=== PATIENT | female | born 1980 | race Caucasian/White ===

== ENCOUNTER 2017-09-24 19:38 | Inpatient (IN) | payer BC ==
[~2017-09-24 19:38] MED LIST: Dinoprostone* 10 MG VAG.SUPP VAGINAL ONE
--- NOTE | 2017-09-24 22:29 | HP ---
General Information - General Information Maternal Age: 37 Grav: 2 Para: 0 SAB: 0 IEA: 1 Estimated Due Date: 09/15/17 Determined By: LMP Gestational Age in Weeks and Days: 41 Weeks and 2 Days Maternal Blood Type and Rh: A Positive - Results this Serology/RPR Result: Non-Reactive Rubella Result: Immune HBsAg Result: Negative HIV Result: Negative GBS Culture Result: Negative Past Medical History Delivery History: See Records Pertinent Past Medical History: Non-Contributory Pertinent Past Surgical History: None Pertinent Family History: Non-Contributory - Antepartal Records Antepartal Records: Reviewed, Uncomplicated Review of Systems Constitutional: Comfortable CV Complaint: No Respiratory: Shortness of Breath: No Gastrointestinal: No Nausea/Vomiting, Normal Bowel Movement Genitourinary: No Dysuria, No Bleeding, No Leaking Fluid Musculoskeletal: No Complaint Neurological: No Headache, No Visual Changes Movement: Normal Exam Allergies/Adverse Reactions: Allergies No Known Allergies Allergy (Verified 09/24/17 20:35) Vital Signs 09/24/17 19:50 Temperature 97.1 F Pulse Rate 76 Respiratory 16 Rate Blood Pressure 121/78 (mmHg) O2 Sat by Pulse 99 Oximetry - Measurements Height: 5 ft 5 in Weight: 91.626 kg Body Mass Index (BMI): 33.6 Pre- Weight: 72.575 kg - Exam Abdomen: No Upper Quadrant Pain Breast: Breast Exam Deferred CVA: No CVA Tenderness Extremities: Edema - bilateral pedal edema Heart: Normal Rhythm/Heart Sounds HEENT: No Significant Findings Lungs: Clear Bilaterally Rectal: Rectal Exam Deferred Reflexes: DTR 2+ Thyroid: No Thyromegaly Targeted Exam Findings See L&D Outpatient Visit Provider Note for Findings: N/A Estimated Weight: 7#6oz Cervical Exam: Fingertip Effacement: 50% Station: -3 Presenting Part: Vertex Membrane Status: Intact Bleeding/Discharge: None EFM Findings - External Monitor Findings Baseline Heart Rate: 105 External Monitor Findings: Accelerations Present, No Pattern of Variable or Late Decelerations, Variability Moderate, Baseline Stable - baseline fluctuating between 105 and 110 Contractions: Irregular, Mild, < 45 Seconds Assessment/Plan - Reason for Visit Reason for Visit: Pt seen in office today for post-dates surveillance. NST showed baseline 105 and was only reactive after vibroacoustic stimulation. After discussion of options with Luis A Ledezma CNM pt elected to begin cervical ripening tonight. - Obstetrical Risk Factors Obstetrical Risk Factors: Post-Dates - Plan Plan: Cervical Ripening - Date/Time of Admission Date of Admission: 09/24/17 Time of Admission: 20:50
[2017-09-25] MEDS ORDERED: Dinoprostone* 10 MG VAG.SUPP VAGINAL ONE (09:00)
[2017-09-25] MEDS ORDERED: Misoprostol TAB* 100 MCG ONE ×2 (17:07→20:53)
[2017-09-25] MEDS ORDERED: Promethazine INJ(RESTRICTED)* 25 MG/ML 1 ML VIAL IV PRN (22:05)
[2017-09-25] MEDS ORDERED: Nalbuphine* 20 MG/ML 1 ML VIAL IV PRN (22:05)
[2017-09-26] MEDS ORDERED: Misoprostol TAB* 100 MCG ONE (01:30)
[2017-09-26 04:54] LABS: Hematocrit 38 % (35-47); Hemoglobin 12.9 g/dl (12.0-16.0); Mean Corpuscular HGB Conc 34 g/dl (31-36); Mean Corpuscular Hemoglobin 31 pg (27-31); Mean Corpuscular Volume 91 fL (80-97); Mean Platelet Volume 8.1 um3 (7.4-10.4); Platelet Count 239 10^3/ul (150-450); Red Blood Count 4.15 10^6/ul (4.0-5.4); Red Cell Distribution Width 16 % (10.5-15); White Blood Count 8.6 10^3/ul (3.5-10.8)
[2017-09-26] MEDS ORDERED: Ondansetron INJ* 2 MG/ML VIAL IV PRN (09:19)
[2017-09-26] MEDS ORDERED: Oxytocin in LR* 20 UNITS/1,000 ML BAG IVPB ONE (13:04)
[2017-09-26] MEDS ORDERED: fentaNYL* 50 MCG/ML 2 ML VIAL (100 MCG VIAL) ONE (16:05)
[2017-09-26] MEDS ORDERED: EPHEDrine (Pressors)* 50 MG/ML VIAL IV PUSH PRN ×2 (17:21)
[2017-09-26] MEDS ORDERED: Famotidine TAB* 20 MG PO PRN (17:21)
[2017-09-26] MEDS ORDERED: Phenylephrine IV* 40 MCG/ML 10 ML SYRINGE IV PUSH PRN ×2 (17:21)
[2017-09-26] MEDS ORDERED: Sodium Citrate/Citric Acid* 15 ML UDC PO PRN (17:21)
[2017-09-26] MEDS ORDERED: Oxytocin in LR* 20 UNITS/1,000 ML BAG IVPB SCH (18:00)
[2017-09-26] MEDS ORDERED: OBEPIDURAL* 250 ML EPIDURAL SCH (18:00)
[2017-09-26] MEDS ORDERED: ceFOXitin(*) 2 GM in NS 0.9% 100 ML* 100 ML IVPB ONE (22:13)
[2017-09-26] MEDS ORDERED: Morphine PF AMP (0.5MG/ML)* 5 MG/10 ML AMP ONE (22:40)
[2017-09-26] MEDS ORDERED: Bupivacaine-MPF SPINAL* 7.5 MG/2 ML AMP ONE (22:41)
[2017-09-26] MEDS ORDERED: Witch Hazel PAD* JAR TOPICAL PRN (22:43)
[2017-09-26] MEDS ORDERED: Glycerin ADULT SUPP PR PRN (22:43)
[2017-09-26] MEDS ORDERED: Phenylephrine IV* 40 MCG/ML 10 ML SYRINGE ONE ×2 (23:08)
[2017-09-26] MEDS ORDERED: OXYTOCIN* 10 UNITS/ML 1 ML VIAL ONE (23:23)
[2017-09-26] MEDS ORDERED: Ondansetron INJ* 2 MG/ML VIAL ONE (23:31)
[2017-09-27] MEDS ORDERED: fentaNYL* 50 MCG/ML 2 ML VIAL (100 MCG VIAL) IV PRN (00:20)
[2017-09-27] MEDS ORDERED: Acetaminophen IV 1GM/100ML * 1,000 MG/100 ML VIAL IVPB ONE (00:20)
[2017-09-27] MEDS ORDERED: Naloxone* 0.4 MG/ML 1 ML VIAL IV PRN ×2 (00:20→00:23)
[2017-09-27] MEDS ORDERED: oxyCODONE TAB* 5 MG TAB PO PRN ×2 (00:20→00:23)
[2017-09-27] MEDS ORDERED: PROCHLORPERAZINE INJ 5 MG/ML 2 ML VIAL IV PRN ×2 (00:20→00:23)
[2017-09-27] MEDS ORDERED: Ketorolac INJ* 30 MG/ML 1 ML VIAL IV ONE (00:21)
[2017-09-27] MEDS ORDERED: Nalbuphine* 20 MG/ML 1 ML VIAL IV PRN (00:23)
[2017-09-27] MEDS ORDERED: Ondansetron INJ* 2 MG/ML VIAL IV PRN (00:23)
[2017-09-27] MEDS ORDERED: Scopolamine 1.5 mg* PATCH TRANSDERM PRN (00:23)
[2017-09-27 06:57] LABS: Hematocrit 31 % (35-47); Hemoglobin 10.6 g/dl (12.0-16.0); Mean Corpuscular HGB Conc 35 g/dl (31-36); Mean Corpuscular Hemoglobin 31 pg (27-31); Mean Corpuscular Volume 90 fL (80-97); Mean Platelet Volume 7.7 um3 (7.4-10.4); Platelet Count 233 10^3/ul (150-450); Red Blood Count 3.42 10^6/ul (4.0-5.4); Red Cell Distribution Width 16 % (10.5-15); White Blood Count 16.1 10^3/ul (3.5-10.8)
[2017-09-27 08:20] LABS: ABS Basophils 0 10^3/ul (0-0.2); ABS Eosinophils 0 10^3/ul (0-0.6); ABS Lymphocytes 1.2 10^3/ul (1.0-4.8); ABS Neutrophils 13.8 10^3/ul (1.5-7.7); ABS Nucleated RBC 0 10^3/ul; Eosinophil % 0 % (0-6); Lymphocyte % 7.2 % (25-47); Nucleated Red Blood Cells % 0.1
[2017-09-27] MEDS ORDERED: Ferrous Gluconate TAB* 324 MG TAB PO SCH (09:00)
[2017-09-27] MEDS: Ketorolac INJ* 30 MG/ML 1 ML VIAL IV SCH ×3 (09:23→21:23)
[2017-09-27] MEDS: Docusate CAP* 100 MG PO SCH ×4 (09:24→21:23)
[2017-09-27] MEDS: Simethicone TAB* 80 MG TAB.CHEW PO SCH ×4 (09:24→21:23)
[2017-09-27] MEDS: Acetaminophen TAB* 325 MG PO SCH ×2 (09:25→17:21)
[2017-09-28] MEDS ORDERED: Ibuprofen TAB* 600 MG PO SCH (01:00)
[2017-09-28] MEDS: Acetaminophen TAB* 325 MG PO SCH (01:34)
[2017-09-28] MEDS: oxyCODONE/Acetamin 5/325 MG* TAB PO PRN ×5 (07:40→20:25)
--- NOTE | 2017-09-28 08:38 | OP ---
DATE OF OPERATION: 09/26/17 - ROOM #118 DATE OF : 80 SURGEON: Marly Casas MD DISTRIBUTOR OF DIRECTORIES: Dr. Ortega and SKYLAR Rodriguez. ANESTHESIOLOGIST: Dr. Palmer. ANESTHESIA: Spinal. PRE-OP DIAGNOSIS: A 41 plus week gestation and arrest of descent. POST-OP DIAGNOSIS: A 41 plus week gestation and arrest of descent. OPERATIVE PROCEDURE: Primary low transverse section. ESTIMATED BLOOD LOSS: 800 cc. URINE OUTPUT: 1000 cc. IV FLUIDS: 2200 cc lactated Ringer's. MATERIALS TO LAB: Cord blood. INDICATIONS: This patient is a 37-year-old 2, para 0, who was admitted to the labor trainer service two days previously for induction of labor after 41 weeks gestation. She received Cervidil and misoprostol for induction and then started to enter into labor. She had gradual progress in labor and received an epidural on hospital day #3. She reached complete dilation but after nearly 3 hours of pushing, the head had not descended adequately and she was unable to continue pushing. At that time, she was extensively counseled and consent was signed for a primary section. FINDINGS: Normal-appearing uterus, fallopian tubes, and ovaries. Delivery is productive of an 8-pound 5-ounce female with Apgars of 8 and 9. Time of delivery was 2324. Of note, there was thick meconium on entry into the uterus. COMPLICATIONS: None. DESCRIPTION OF PROCEDURE: The risks, benefits, and alternatives were described to the patient and informed consent was obtained. The patient was taken to the operating room with IV running where spinal anesthesia was induced and found to be adequate. The patient was prepped and draped in the normal sterile fashion in the dorsal supine position with leftward tilt. A Pfannenstiel skin incision was made with a scalpel and this was carried down to the underlying fascia sharply. The fascia was then scored in the midline with the scalpel. The incision was extended using Montalvo scissors. The rectus muscles were dissected off the rectus fascia using blunt and sharp dissection. The rectus muscles were in the midline bluntly. The peritoneum was also entered bluntly. A bladder blade was placed. A bladder flap was created sharply using Metzenbaum scissors. A low transverse uterine incision was made with the scalpel. This was carried down to the amniotic cavity which was productive of very thick meconium. The incision was extended with blunt traction. The head was elevated to the level of the incision with moderate difficulty due to the low station and delivered through the incision. With fundal pressure, the shoulders and body delivered without difficulty. The infant had good tone and cried shortly after delivery. The cord was doubly clamped and cut. The was then handed to the awaiting riveter. Cord blood was collected. The placenta then delivered with manual extraction. The uterus was then exteriorized and cleared of all clots and debris. The uterine incision was reapproximated using 0 Polysorb in a running-locked fashion. A second layer of imbricating sutures of 0 Polysorb was also placed with good hemostasis. A small midline extension was present and closed with 0 Polysorb. The posterior cul-de-sac was irrigated with saline. The uterus was then returned to the abdomen, and the incision was reinspected and noted to be hemostatic. The peritoneum was closed with 3-0 Polysorb in a running fashion. The fascia was closed with 0 Polysorb in a running fashion. Subcutaneous tissues were reapproximated using 3-0 Vicryl in interrupted stitches. The skin was then closed with 4-0 Monocryl in a subcuticular stitch. Mastisol and Steri- Strips were placed over the incision which was then covered with a sterile bandage. The patient tolerated the procedure well. Sponge, lap, and needle counts were correct x2. [id number]/[facility] #: [id number] MTDD
[2017-09-28] MEDS: Ibuprofen TAB* 600 MG PO SCH ×2 (09:32→15:53)
[2017-09-28] MEDS: Simethicone TAB* 80 MG TAB.CHEW PO SCH ×4 (09:32→20:22)
[2017-09-28] MEDS: Docusate CAP* 100 MG PO SCH ×3 (09:32→20:22)
[2017-09-29] MEDS: Ibuprofen TAB* 600 MG PO SCH ×3 (01:29→13:44)
[2017-09-29] MEDS: oxyCODONE/Acetamin 5/325 MG* TAB PO PRN ×3 (01:30→13:45)
[2017-09-29 07:51] VITALS: BP 123/68
[2017-09-29] MEDS: Docusate CAP* 100 MG PO SCH ×2 (07:58→13:44)
[2017-09-29] MEDS: Simethicone TAB* 80 MG TAB.CHEW PO SCH ×2 (07:58→13:46)
[2017-09-30] MEDS ORDERED: Scopolamine PATCH Remove* 1 NOTE MISC PATCH OFF PRN (00:25)
== END 2017-09-29 14:26 | disposition home or self-care (01) | DRG 540 ==
LOC: MCHOBOUT 19:38 → MCHOB 22:16
PROVIDERS: ADMIT Midwife; ATTEND Obstetrics & Gynecology
PROC: 3E033VJ Introduction of Other Hormone into Peripheral Vein, Percutaneous Approach (ICD-10-PCS; 2017-09-26)
PROC: 10D00Z1 Extraction of Products of Conception, Low, Open Approach (ICD-10-PCS; principal; 2017-09-26 22:45)
DX: O32.4XX0 Maternal care for high head at term, not applicable or unspecified (principal); O48.0 Post-term pregnancy; O99.344 Other mental disorders complicating childbirth; O77.0 Labor and delivery complicated by meconium in amniotic fluid; F41.9 Anxiety disorder, unspecified; Z3A.41 41 weeks gestation of pregnancy; Z37.0 Single live birth
CPT/HCPCS: 36415; 59200; 85025; 85027; 86850; 86900; 86901; A9270-GY; J0694; J1885; J2300; J2405; J2550; J2590; J3010; S0191

== ENCOUNTER 2019-05-23 15:27 | Emergency (ER) | payer SELFPAY ==
--- OUTSIDE RECORDS SUMMARY | 2019-05-23 15:37 | XMS REPORT | Summary of Care ---
:1980 Author Organization [facility] Address [address] [place] [address] Care Team Providers Name Role Phone Lynne Sow Primary Care Provider Reason for Visit Reason Comments Sore Throat pt states nasal congestion, head cold and sinus pressure starting 10 days ago. 4-5 days ago she started to feel better and now only has sore throat and slight cough. Encounter Details Date Type Department Care Team Description 04/03/2019 Office Visit [place] Danielle Feldman, Acute non-recurrent frontal sinusitis (Primary Dx); Practice [facility] Sore throat [address] [place] [address] [place] [address] [phone] Allergies No Known Allergiesdocumented as of this encounter (statuses as of 04/03/2019) Medications Medication Sig Dispensed Refills Start Date End Date Status Vit-Fe Take by mouth. 0 01/12/2017 Active Fumarate-FA ( VITAMINS) 28-0.8 MG Oral Tab Ascorbic Acid Take by mouth. 0 Active (VITAMIN C CR) 1000 MG Oral Tab CR IBUPROFEN 200 PO Take by mouth. 0 Active Norethindrone, Take 1 Tab by 0 Active Contraceptive, 0.35 mouth. MG Oral Tab DilTIAZem HCl Does 1 Appl by Apply externally route THREE TIMES DAILY. Diltiazem 4% compound cream/gel with 1.5% lidocaine. 30 g 2 05/03/2018 Active not apply Powder Apply to perianal region with cotton swab three times daily. lidocaine (XYLOCAINE) 0.1 g by Topical 30 g 2 05/03/2018 Active 5 % Apply externally route THREE TIMES Ointment DAILY NEEDED (anal pain). Apply to perianal region 10-20 minutes prior to bowel movement. amoxicillin-clavulani Take 1 Tab by mouth 20 Tab 0 04/03/2019 Active c acid (AUGMENTIN 875 TWICE DAILY. MG) 875-125 MG Oral Tab fluconazole Take 1 Tab by mouth 2 Tab 0 04/03/2019 Active (DIFLUCAN) 150 MG DAILY. Oral Tab documented as of this encounter (statuses as of 04/03/2019) Active Problems Problem Noted Date Hemorrhoids 04/21/2018 documented as of this encounter (statuses as of 04/03/2019) Social History Tobacco Use Types Packs/Day Years Used Date Never Smoker Smokeless Tobacco: Never Used Alcohol Use Drinks/Week oz/Week Comments No Sex Assigned at Date Recorded Not on file Job Start Date Occupation Industry Not on file Not on file Not on file Travel History Travel Start Travel End No recent travel history available. documented as of this encounter Last Filed Vital Signs Vital Sign Reading Time Taken Comments Blood Pressure 118/68 04/03/2019 3:01 PM EST Pulse 67 04/03/2019 3:01 PM EST Temperature 36.9 04/03/2019 3:01 PM EST C (98.4 F) Respiratory Rate - - Oxygen Saturation 97% 04/03/2019 3:01 PM EST Inhaled Oxygen Concentration - - Weight 66.2 kg (146 lb) 04/03/2019 3:01 PM EST Height 162.6 cm (5' 4") 04/03/2019 3:01 PM EST Body Mass Index 25.06 04/03/2019 3:01 PM EST documented in this encounter Patient Instructions Patient InstructionsDoDanielle macedo PA-C - 04/03/2019 2:40 PM ESTEscribed Augmentin 875mg, 1 pill twice a day x 10 days, take with food Escribed Diflucan 150mg, take if vaginal yeast deveolps Avoid creamy foods and drink Rest, gargle with warm salt water Push water, soup, juice, tea with honey/lemon OTC Tylenol/Ibuprofen for fever/pain Will send throat swab to lab for culture, will call with results Call if not improving or with any questions or concerns documented in this encounter Progress Notes Danielle Tabares PA-C - 04/03/2019 2:40 PM EST PATIENT: Sagrario Blood : 1980 DATE OF SERVICE: 04/03/2019 REFERRING PRACTITIONER: Self-Referred PRIMARY CARE PROVIDER: Lynne Sow CHIEF COMPLAINT: Chief Complaint Patient presents with Sore Throat pt states nasal congestion, head cold and sinus pressure starting 10 days ago. 4-5 days ago she started to feel better and now only has sore throat and slight cough. Subjective HISTORY OF PRESENT ILLNESS: Sagrario Blood is a 38-y.o. female who presents with nasal congestion, sinus pressure x 10 days [place] better 4-5 days ago, but then sore throat and coughing started Has been taking OTC dayquil, nyquil, robitussin Denies fever, chills, nausea, vomiting, diarrhea, chest pains, SOB Past Medical History: Diagnosis Date Anal fissure 04/2018 Hemorrhoid 2007 Past Surgical History: Procedure Laterality Date LOW CERVICAL 09/26/2017 Family History Problem Relation Age of Onset Stroke Maternal Grandmother Diabetes Maternal Grandfather Heart Maternal Grandfather Heart Paternal Grandfather Current Outpatient Medications Medication Sig Ascorbic Acid (VITAMIN C CR) 1000 MG Oral Tab CR Take by mouth. DilTIAZem HCl Does not apply Powder 1 Appl by Apply externally route THREE TIMES DAILY. Diltiazem 4% compound cream/gel with 1.5% lidocaine. Apply to perianal region with cotton swab three times daily. IBUPROFEN 200 PO Take by mouth. lidocaine (XYLOCAINE) 5 % Apply externally Ointment 0.1 g by Topical route THREE TIMES DAILY NEEDED (anal pain). Apply to perianal region 10-20 minutes prior to bowel movement. Norethindrone, Contraceptive, 0.35 MG Oral Tab Take 1 Tab by mouth. Vit-Fe Fumarate-FA ( VITAMINS) 28-0.8 MG Oral Tab Take by mouth. No current facility-administered medications for this visit. No Known Allergies Social History Socioeconomic History Marital status: Spouse name: Not on file Number of children: Not on file Years of education: Not on file Highest education level: Not on file Occupational History Not on file Social Needs Financial resource strain: Not on file Food insecurity: Worry: Not on file Inability: Not on file Transportation needs: Medical: Not on file Non-medical: Not on file Tobacco Use Smoking status: Never Smoker Smokeless tobacco: Never Used Substance and Sexual Activity Alcohol use: No Drug use: No Sexual activity: Yes Partners: Male Lifestyle Physical activity: Days per week: Not on file Minutes per session: Not on file Stress: Not on file Relationships Social connections: Talks on phone: Not on file Gets together: Not on file Attends faith service: Not on file Active member of club or organization: Not on file Attends meetings of clubs or organizations: Not on file Relationship status: Not on file Intimate partner violence: Fear of current or ex partner: Not on file Emotionally abused: Not on file Physically abused: Not on file Forced sexual activity: Not on file Other Topics Concern Not on file Social History Narrative . One child, one step child. Nursery co-coordinator, part-time REVIEW OF SYSTEMS: Skin: negative skin lesions Eyes: negative visual blurring Ears/Nose/Throat: positive rhinorrhea, sore throat, sinus pressure, post nasal drip Respiratory: positive cough Cardiovascular: negative chest pain Gastrointestinal: negative abdominal pain, constipation, diarrhea, nausea or vomiting Genitourinary: negative burning on urination, dysuria or vaginal discharge Musculoskeletal: negative arthritis/joint pain Neurologic: negative numbness or tingling of feet or hands Psychiatric: negative anxiety Hematologic/Lymphatic/Immunologic: negative allergies Endocrine: negative diabetes or hot flashes/sweats Objective PHYSICAL EXAMINATION: VITALS: BP 118/68 (BP Location: Left arm, Patient Position: Sitting) | Pulse 67 | Temp 98.4 F(36.9 C) | Ht 5' 4" (1.626 m) | Wt 146 lb (66.2 kg) | SpO2 97% | BMI 25.06 kg/m Body mass index is 25.06 kg/m. General appearance: alert, mild distress, cooperative, oriented times 3 Skin: Skin color, texture, turgor normal. No rashes or lesions. Head: Normocephalic. No masses, lesions, tenderness or abnormalities Eyes: conjunctivae/corneas clear. PERRL, EOM's intact. Ears: positive findings: cerumen bilaterally Nose/Sinuses: positive findings: mucosa erythematous and swollen, clear rhinorrhea, frontal and maxillary sinuses tender to palpation Oropharynx: positive findings: moderate oropharyngeal erythema, post nasal drip present, white exudate present right tonsil Neck: Neck supple, FROM. No cervical or supraclavicular adenopathy. Lungs: Lungs clear. Chest symmetrical. Normal breath sounds. Heart: RRR. No murmur, clicks or gallops. No peripheral edema Rapid strep: negative . IMPRESSION: ICD-9-CM ICD-10-CM 1. Acute non-recurrent frontal sinusitis 461.1 J01.10 2. Sore throat 462 J02.9 STREP A ANTIGEN (AMB POCT) THROAT STREP SCREEN CULTURE THROAT STREP SCREEN CULTURE Plan PLAN: Escribed Augmentin 875mg, 1 pill twice a day x 10 days, take with food Escribed Diflucan 150mg, take if vaginal yeast deveolps Avoid creamy foods and drink Rest, gargle with warm salt water Push water, soup, juice, tea with honey/lemon OTC Tylenol/Ibuprofen for fever/pain Will send throat swab to lab for culture, will call with results Call if not improving or with any questions or concerns Author: Danielle Tabares PA-C 04/03/2019 14:54 documented in this encounter Plan of Treatment Name Type Priority Associated Diagnoses Order Schedule THROAT STREP SCREEN Lab Routine Sore throat 1 Occurrences starting CULTURE 04/03/2019 until 09/30/2019 Health Maintenance Due Date Last Done Comments DEPRESSION SCREENING 04/03/2020 04/03/2019 PAP SMEAR 03/03/2021 03/03/2018 HIV SCREENING Completed 03/15/2017 HPV IMMUNIZATION SERIES Aged Out No longer eligible based on patient's age to complete this topic MENINGOCOCCAL VACCINE IMM Aged Out No longer eligible based on patient's age to complete this topic PNEUMOCOCCAL 0-64 YRS Aged Out No longer eligible based on patient's age to complete this topic documented as of this encounter Procedures Procedure Name Priority Date/Time Associated Diagnosis Comments STREP A ANTIGEN Routine 04/03/2019 3:15 PM Sore throat Results for this (AMB POCT) EST procedure are in the results section. documented in this encounter Results STREP A ANTIGEN (AMB POCT) (04/03/2019 3:15 PM EST) Strep A Antigen Negative Negative [facility] (POCT) POCT Control Line Present Present [facility] POCT Strep A Antigen Yes, Sent for [facility] Confirm (POCT) Confirmation POCT Lot Number [id number] [facility] POCT Expiration Date 10/13/18 [facility] POCT Specimen Performing Organization Address City/State/Zipcode Phone Number [facility] [address] [place] [address] documented in this encounter Visit Diagnoses Diagnosis Acute non-recurrent frontal sinusitis - Primary Sore throat Acute pharyngitis documented in this encounter
[2019-05-23 19:27] VITALS: BP 116/69
[2019-05-23] MEDS ORDERED: Pantoprazole TAB * 40 MG TAB PO ONE (19:39)
--- NOTE | 2019-05-23 19:45 | UC ---
Nausea/Vomiting/Diarrhea HPI - HPI Summary HPI Summary: 38-year-old woman comes in with a chief complaint of abdominal pain and diarrhea. 4 days ago patient started with some cramping abdominal pain and had diarrhea. The diarrhea was black. After the initial diarrhea she did start taking Pepto-Bismol. Pain is cramping and primarily upper abdomen. The worst pain is in the epigastrium. No complaint of any lower abdominal pain. No fevers measured. Pain and diarrhea were improving. She's had no diarrhea today. She is still passing gas. She does feel bloated. However the pain today did start coming back. Only prior surgeries . No history of chronic intermittent abdominal condition such as irritable bowel or Crohn's or ulcerative colitis. When she eats sometimes it makes the pain worse other times it doesn't seem to make a difference. She does have decreased appetite. - History of Current Complaint Chief Complaint: UCAbdominalPain Stated Complaint: STOMACH PAIN Time Seen by Provider: 05/23/19 18:31 Pain Intensity: 7 - Allergies/Home Medications Allergies/Adverse Reactions: Allergies Allergy/AdvReac Type Severity Reaction Status Date / Time No Known Allergies Allergy Verified 05/23/19 16:14 PMH/Surg Hx/FS Hx/Imm Hx Previously Healthy: Yes - Surgical History Surgical History: Yes Surgery Procedure, Year, and Place: - Family History Known Family History: Positive: Non-Contributory - Social History Alcohol Use: Occasionally Alcohol Amount: rarely a 1/2 glass of wine Substance Use Type: None Smoking Status (MU): Never Smoked Tobacco - Immunization History Most Recent Influenza Vaccination: unknown Most Recent Pneumonia Vaccination: none Review of Systems All Other Systems Reviewed And Are Negative: Yes Constitutional: Positive: Other - SEE HPI Skin: Positive: Negative Eyes: Positive: Negative ENT: Positive: Negative Respiratory: Positive: Negative Cardiovascular: Positive: Negative Gastrointestinal: Positive: Abdominal Pain - SEE HPI, Diarrhea Genitourinary: Positive: Negative Motor: Positive: Negative Neurovascular: Positive: Negative Musculoskeletal: Positive: Negative Neurological: Positive: Negative Psychological: Positive: Negative Is Patient Immunocompromised?: No Physical Exam Triage Information Reviewed: Yes Appearance: Well-Appearing, Well-Nourished, Pain Distress - MILD WITH ABDOMINAL EXAMINATION Vital Signs: Initial Vital Signs Temp 98.3 F 05/23/19 16:07 Pulse 65 05/23/19 16:07 Resp 18 05/23/19 16:07 BP 102/45 05/23/19 16:07 Pulse Ox 98 05/23/19 16:07 Vital Signs Reviewed: Yes Eye Exam: Normal Eyes: Positive: Conjunctiva Clear Neck: Positive: Supple Respiratory: Positive: Lungs clear, Normal breath sounds, No respiratory distress Cardiovascular: Positive: RRR Abdomen Description: Positive: Other: - Negative heel strike negative obturator sign. Nontender to palpation in the right lower or suprapubic or left lower quadrants. Patient is tender to palpation at the umbilicus and in the epigastrium. Tenderness is worse in the epigastrium. Bowel Sounds: Positive: Present Musculoskeletal: Positive: Strength Intact, ROM Intact Neurological: Positive: Alert, Muscle Tone Normal Psychological: Positive: Age Appropriate Behavior Skin Exam: Normal Naus/Vom/Diarrhea Course/Dx - Course Course Of Treatment: Stool is Hemoccult negative. Orthostatics were normal. Patient did not feel lightheaded with orthostatics. With the tenderness being the worst in the epigastrium we'll treat with omeprazole. Stools have been black. We discussed possibility of stomach ulcers cause. Clinically the patient does not have signs of bowel obstruction in that she is still passing gas and she has been able to take in some by mouth intake. No vomiting. Patient went home with a stool sample kit. We did discuss if she did not improve or if she got worse with pain, fever, blood in her stool, she felt lightheaded she should go the emergency department. - Differential Dx/Diagnosis Provider Diagnosis: Abdominal pain, Diarrhea Condition At Discharge: Stable Discharge ED - Sign-Out/Discharge Documenting (check all that apply): Patient Departure All imaging exams completed and their final reports reviewed: No Studies - Discharge Plan Condition: Stable Disposition: HOME Prescriptions: Omeprazole CAP (NF) [Prilosec CAP* 20 MG] 20 mg PO BID #30 cap. Patient Education Materials: Acute Diarrhea (ED), Acute Abdominal Pain (ED) Referrals: Estrella Virk [Primary Care Provider] - Additional Instructions: FOLLOW UP WITH YOUR DOCTOR. GO TO THE EMERGENCY DEPARTMENT IF NOT IMPROVED OR WORSE; PAIN, FEVER, BLOOD IN YOUR STOOL, YOU FEEL LIGHT HEADED, YOU FEEL LIKE PASSING OUT, DEHYDRATION OR ANY QUESTIONS OR CONCERNS. - Billing Disposition and Condition Condition: STABLE Disposition: Home
[2019-05-24 11:53] LABS: ABS Eosinophils 0.1 10^3/ul (0-0.6); ABS Lymphocytes 2.1 10^3/ul (1.0-4.8); ABS Monocytes 0.5 10^3/ul (0-0.8); ABS Neutrophils 1.5 10^3/ul (1.5-7.7); Eosinophil % 2.1 %; Hematocrit 36 % (35-47); Hemoglobin 12.9 g/dL (12.0-16.0); Lymphocyte % 49.8 %; Mean Corpuscular HGB Conc 36 g/dL (31-36); Mean Corpuscular Hemoglobin 32 pg (27-31); Mean Corpuscular Volume 90 fL (80-97); Mean Platelet Volume 8.8 fL (7.4-10.4); Nucleated Red Blood Cells % 0.4; Platelet Count 253 10^3/uL (150-450); Red Blood Count 3.99 10^6 /uL (3.70-4.87); Red Cell Distribution Width 13 % (10-15); White Blood Count 4.2 10^3/uL (3.5-10.8)
[2019-05-24 12:06] LABS: Albumin 4.2 g/dL (3.2-5.2); BUN/Creatinine Ratio 9.1 (8-20); Calcium 9.4 mg/dL (8.6-10.3); EGFR African American 101.5 (>60); EGFR Non-African American 83.9 (>60); Globulin 2.1 g/dL (2-4); Potassium 3.3 mmol/L (3.5-5.0); Total Bilirubin 0.5 mg/dL (0.2-1.0); Total Protein 6.3 g/dL (6.4-8.9)
== END 2019-05-23 20:04 | disposition home or self-care (01) ==
LOC: UCEAST 15:27
DX: R10.13 Epigastric pain (principal); R19.7 Diarrhea, unspecified
CPT/HCPCS: 36415; 80053; 82270; 83690; 85025; 99212; A9270-GY; G0463